=== PATIENT | female | born 1930 | race Caucasian/White ===

== ENCOUNTER 2016-10-03 08:15 | Inpatient (IN) | payer MEDICARE ==
[~2016-10-03] VITALS: Ht 162.6 cm; Wt 62.7 kg
[~2016-10-03 08:15] MED LIST: ACETAMINOP160 MG/5 M NG; ACETAMINOPHEN500 M1 PO; ADVIL200 MG PO; ALBUMIN (HUMAN100 M1 IV; AMBESOL BC; APAP325 MG NG; APAP325 MG PO; BISCOLAX10 MG/SUPP RC; CATAPRES0.1 MG PO; CELEXA20 MG PO; CHILDRENS160 MG/5 M NG; CITRATE OF MAG300 ML PO; CLEOCIN HCL300 MG PO; COLACE100 MG PO; COLACE50 MG/5 ML PO; COUGH PO; D5W 1000 ML I1000 ML IV; DEXTROSE 50%/WA50 ML IV; DIOVAN80 MG PO; GAS-X125 M1 PO; GLUCAGON1 MG/KIT IM; GLUCAGON1 MG/KIT SQ; HUMULIN R100 U/ML SC; HUMULIN R100 U/ML SQ; INSTA-GLUCOSE31 GM PO; IPRAT-ALBUT 0.5-3 ML UPD; KLONOPIN0.5 MG PO; LIPITOR20 MG PO; MELATONIN 3 MG1 TAB PO; METOCLOPRAM5 MG/5 ML IV; METOCLOPRAMIDE HCL INJ; MICRO-K10 MEQ PO; MILK OF MAGNESI30 ML PO; MULTI-DAY VITAM1 TAB PO; MYLANTA / MAALO30 ML PO; NORCO 5/325 TAB1 TA1 OR; NORVASC5 MG PO; ONDANSETRON4 MG/2 M3 IV; PHENERGAN25 M1 PO; PHENERGAN25 MG RC; PLAVIX75 MG PO; PRILOSEC20 MG PO; PROCALAMINE I1000 ML IV; PROTEIN LIQUID30 ML PO; PROTONIX I40 MG/VIAL IV; PROTONIX40 MG PO; REGLAN10 MG PO; REGLAN5 MG PO; REQUIP0.25 MG PO; ROBITUSSIN DM 110 ML PO; SALINE FLUSH10 ML IV; SCOT-TUSSI10 MG/5 ML PO; SENNA8.6 MG PO; TUMS500 MG PO; TYLENOL325 MG PO; TYLENOL650 MG RC; ULTRAM50 MG PO; XANAX0.5 MG PO; ZANTAC150 MG PO; ZOLOFT50 MG PO; [UNRECOGNIZED DRUG - REMARK]
[2016-10-03 09:00] LABS: BASOPHILS 0.2 % (0-2); HEMATOCRIT 38.4 % (36.0-48.0); IMMATURE GRANULOCYTES 0.7 % (0-5); LYMPHOCYTES 6.5 % (15-50); MCH 31.5 pg (26.0-34.0); MCHC 31.3 g/dL (31.0-37.0); MCV 100.8 fL (80.0-100.0); MEAN PLATELET VOLUME 10.7 fL (7.4-10.4); MONOCYTES 7.8 % (2-11); NEUTROPHILS 83.8 % (40-80); PLATELET COUNT 275 10x3/uL (130-400); RBC 3.81 10x6/uL (4.00-5.40); RDW 13.2 % (11.5-14.5); WBC 13.2 10x3/uL (4.8-10.8)
[2016-10-03 09:15] LABS: ALBUMIN 2.7 g/dL (3.4-5.0); BILIRUBIN - TOTAL 0.24 mg/dL (0.2-1.3); CALCIUM 9.7 mg/dL (8.5-10.1); CARBON DIOXIDE 34.1 mmol/L (21.0-32.0); CREATININE - SERUM 0.8 mg/dL (0.6-1.3); POTASSIUM - SERUM 4.1 mmol/L (3.5-5.1); PROTEIN - SERUM 7.4 g/dL (6.4-8.2)
[2016-10-03 09:18] LABS: TROPONIN-I 0.018 ng/mL (0.000-0.060)
[2016-10-03 11:01] LABS: APPEARANCE CLEAR (CLEAR); BILIRUBIN NEGATIVE (NEGATIVE); COLOR YELLOW (YELLOW); GLUCOSE NEGATIVE (NEGATIVE); KETONE NEGATIVE (NEGATIVE); LEUKOCYTE ESTERASE NEGATIVE (NEGATIVE); NITRITE NEGATIVE (NEGATIVE); PROTEIN 1+ mg/dL (NEGATIVE); UROBILINOGEN NORMAL (NORMAL)
[2016-10-03 11:02] LABS: BACTERIA FEW /hpf (NONE SEEN); EPITHELIAL CELLS OCC /hpf (0-5); MUCUS <1+ /lpf (NONE SEEN); RED CELLS - URINE OCC /hpf (0-5); WHITE CELLS - URINE OCC /hpf (0-5)
--- NOTE | 2016-10-03 11:26 | NUR ---
RECEIVED FROM ER, NO DISTRESS NOTED, RESPITORY IN ROOM GIVING TREATMENT, IV FELL OUT, TIP INTACT, WILL CONTINUE TO MONITOR
[2016-10-03 12:59] VITALS: BP 130/75; Ht 162.6 cm; Wt 62.7 kg
[2016-10-03] MEDS ORDERED: HYDROCODON-ACE1 EAC7 PO (13:41)
[2016-10-03 16:13] VITALS: BP 103/69
--- NOTE | 2016-10-03 19:44 | NUR ---
FLUSHED PATIENT'S IV. PATIENT REPORTS PAIN 12/31, NOTIFIED PADMINI MORILLO. BED IN LOWEST POSITION AND CALL LIGHT WITHIN REACH. ENCOURAGED THE PATIENT TO CALL IF SHE HAS FURTHER NEEDS.
--- NOTE | 2016-10-03 19:47 | NUR ---
INFORMED THE PATIENT THAT SHE CAN HAVE HER PAIN MEDICATION AGAIN AT 2100. NOTIFIED ILIA WASHINGTON.
[2016-10-03 20:00] VITALS: BP 106/63
[2016-10-04] VITALS: BP 110/64
[2016-10-04 04:00] VITALS: BP 102/62
--- NOTE | 2016-10-04 09:00 | NUR ---
ASSESSMENT PER FLOW SHEET.PT WITHOUT DISTRESS.CALL LIGHT IN REACH.NIA MAT IN PLACE AND FUNCTIONNING.FAMILY AT BEDSIDE
[2016-10-04 09:06] VITALS: BP 115/85
[2016-10-04 11:48] VITALS: BP 109/78
--- NOTE | 2016-10-04 12:10 | NUR ---
WITHOUT DISTRESS.MONITOR FOR NEEDS
--- NOTE | 2016-10-04 14:04 | NUR ---
SLEEPING WITHOUT NEEDS.CALL LIGHT IN REACH
[2016-10-04 16:14] VITALS: BP 104/69
--- NOTE | 2016-10-04 18:33 | NUR ---
REMAINS WITHOUT NEEDS,WITHOUT CHANGE.CONT PLAN OF CARE
[2016-10-04 20:00] VITALS: BP 96/66
--- NOTE | 2016-10-04 21:00 | NUR ---
AAO TIME 3 , ASSESS PER FLOWSHEET. DENIES NEEDS OR PAIN , BED LOW CL IN REACH. WILL CONT. WITH PLAN OF CARE. ALL FALL PRECAUTIONS IN PLACE.
[2016-10-05] VITALS: BP 102/59
--- NOTE | 2016-10-05 00:10 | NUR ---
RESTING QUIETLY WITH EYES CLOSED. RESP DEEP EVEN UNLABORED. BED LOW CL IN REACH.
--- NOTE | 2016-10-05 02:32 | NUR ---
CONT TO REST QUIETLY WITH EYES CLOSED, RESP WITH EASE.
[2016-10-05 04:00] VITALS: BP 102/76
[2016-10-05 06:11] LABS: BASOPHILS 0.5 % (0-2); EOSINOPHILS 2.8 % (0-7); HEMATOCRIT 37.3 % (36.0-48.0); HEMOGLOBIN 11.6 g/dL (12-16); IMMATURE GRANULOCYTES 0.9 % (0-5); LYMPHOCYTES 11.4 % (15-50); MCH 31.1 pg (26.0-34.0); MCHC 31.1 g/dL (31.0-37.0); MEAN PLATELET VOLUME 10.5 fL (7.4-10.4); MONOCYTES 11.6 % (2-11); NEUTROPHILS 72.8 % (40-80); PLATELET COUNT 289 10x3/uL (130-400); RBC 3.73 10x6/uL (4.00-5.40); RDW 13.2 % (11.5-14.5)
[2016-10-05 06:13] LABS: WBC 8.6 10x3/uL (4.8-10.8)
[2016-10-05 06:29] LABS: CALCIUM 9.3 mg/dL (8.5-10.1); CARBON DIOXIDE 32.7 mmol/L (21.0-32.0); CREATININE - SERUM 0.8 mg/dL (0.6-1.3); POTASSIUM - SERUM 3.7 mmol/L (3.5-5.1)
--- NOTE | 2016-10-05 07:20 | NUR ---
REPORT RECEIVED FROM DIESEL LOCOMOTIVE ENGINEER NURSE. CALL LIGHT IN REACH.
[2016-10-05 08:08] VITALS: BP 96/61
--- NOTE | 2016-10-05 08:20 | NUR ---
PATIENT ALERT IN MID GUILLORY POSITION READING NEWSPAPER. NO SIGNS OF DISTRESS NOTED. FAMILY AT BEDSIDE. SIDE RAILS UP X2. BED IN LOW POSITION. CALL LIGHT IN REACH.
--- NOTE | 2016-10-05 09:28 | NUR ---
ASSESSMENT COMPLETED. SCDs TO BLE. NORCO PO WITH AM MEDS ADMINISTERED. NIA MAT ALARM ON. VISITOR IN ROOM. CALL LIGHT IN REACH. WILL CONTINUE WITH PLAN OF CARE.
[2016-10-05] MEDS ORDERED: ZITHROMAX250 MG PO (11:20)
[2016-10-05] MEDS ORDERED: OMNICEF300 MG PO (11:20)
--- NOTE | 2016-10-05 11:43 | NUR ---
10/05/2016 11:36 DCP: Discharge Planning Patient Name: SAMEERA JOAQUIN Admission Status: ER Accout number: [id number] Admission Date: 10-03-2016 : 1930 Admission Diagnosis: Attending: MARYELLEN Current LOS: 2 Planned Disposition: [facility] Primary Insurance: MEDICARE A & B Discharge Planning Comments: DC order rec'd. Patient is a longterm care resident at [facility] & will return this afternoon to a assistant terminal manager care bed. Transport van will pick her up this afternoon. Nursing to call report to [phone] to Estela. Application Support Technician: Kay Nieves
[2016-10-05 12:11] VITALS: BP 94/62
--- NOTE | 2016-10-05 12:24 | NUR ---
IV DC'D WITH TIP INTACT. REGLAN PO. DC INSTRUCTIONS EXPLAINED TO PATIENT. VERBALIZED AND SIGNED.
--- NOTE | 2016-10-05 12:34 | NUR ---
REPORT CALLED TO ILIA MCDONALD, AT [facility].
--- NOTE | 2016-10-05 13:20 | NUR ---
DC'D TO [facility] VAN VIA WC WITH [facility] STAFF.
== END 2016-10-05 13:20 | DRG 179 ==
LOC: D.ER 08:15 → D.MS 10:13
PROVIDERS: Emergency Medicine; ADMIT Emergency Medicine
DX: J69.0 Pneumonitis due to inhalation of food and vomit (principal); I10 Essential (primary) hypertension; G25.81 Restless legs syndrome; R09.02 Hypoxemia; K59.09 Other constipation

== ENCOUNTER 2018-01-01 13:15 | Inpatient (IN) | payer MEDICARE ==
[2018-01-01] VITALS (8 sets, daily range): BP systolic 101–114; BP diastolic 60–81
[~2018-01-01] VITALS: Ht 162.6 cm; Wt 54.4 kg
--- NOTE | ~2018-01-01 | PN ---
PATIENT:SAMEERA JOAQUIN MEDICAL RECORD: [id number] LOCATION:[facility] ADMISSION DATE: 01/01/18 PROGRESS NOTE DATE OF SERVICE: 01/10/2018 SUBJECTIVE: This is an 87-year-old female who was admitted for cough, sputum production and shortness of breath and has been treated with antibiotics. Urine showed gram-positive cocci. She has had persistent left basilar airspace disease and pleural effusion without significant interval change. The patient has been feeling well. Denies any shortness of breath or coughing. The patient states that she is doing well and wants to go home. She is mildly confused. PHYSICAL EXAMINATION: GENERAL: Physical exam reveals a woman who is in no acute distress. VITAL SIGNS: Temperature 98.2, heart rate of 89, respiratory rate 24, blood pressure 148/54, saturation 95%. SHEENT: Unremarkable. NECK: Supple. No adenopathy. Trachea is midline. LUNGS: Clear and symmetric. Crackles on coughing. No chest wall tenderness or accessory muscle use. HEART: Exam shows no jugular venous distention, murmur or gallops. ABDOMEN: Benign, without tenderness. EXTREMITIES: No clubbing, cyanosis or edema. LABORATORY DATA: White count 7.7, hemoglobin 7.7, and platelet count is 199. Chemistry is remarkable for creatinine of 0.6. Sodium is 144, potassium 3.5 supplemented. ASSESSMENT: 1. Urinary tract infection secondary to vancomycin-resistant Enterococcus faecium. 2. Pneumonitis, possibly chronic. PLAN: 1. Continue antibiotics. 2. Deep venous thrombosis prophylaxis with Lovenox. 3. Bronchodilators. TRANSINT:[id number] Voice Confirmation ID: [id number] DOCUMENT ID: [id number] TEO CARRION at 1536 CC: [id number] DICTATION DATE: 01/10/182110 RESIDENTIAL TREATMENT STAFF: 01/11/18 0136 ADM IN [place] [id number] [place] [address]
--- NOTE | ~2018-01-01 | PN ---
PATIENT:SAMEERA JOAQUIN MEDICAL RECORD: [id number] LOCATION:D[facility] ADMISSION DATE: 01/01/18 PROGRESS NOTE DATE OF SERVICE: 01/12/2018 SUBJECTIVE: This is an 87-year-old female who was admitted for urinary tract infection. The patient was noted to have basilar airspace disease as well as pleural effusion. She also has some nodular opacities right lower lobe and left upper lobe. This represent previously noted pulmonary nodules. There was diffuse interstitial prominence seen throughout both lungs. The patient has been on antibiotics, has also been on bronchodilators. The patient has been feeling well and wants to go home. There is no fever or chills. PHYSICAL EXAMINATION: GENERAL: Reveals an elderly female who is confused. VITAL SIGNS: Temperature 98.6, heart rate of 94, respiratory rate of 16, blood pressure 154/79 and saturation 96%. HEENT: Showed normocephalic. Pupils are equal and reactive. Nasal cavity is normal with no obstruction. Oral cavity is also normal, well moistened. NECK: Supple. There is no adenopathy. Trachea is midline. CHEST: Showed some mild crackles and coughing. HEART: Shows no jugular venous distention. No murmur or gallops. ABDOMEN: Benign with no tenderness. There are no masses. EXTREMITIES: There is no clubbing, cyanosis or edema. LABORATORY DATA: Initial white count 7.3, hemoglobin 11.9, platelet count is 222,000. Chemistry is remarkable for creatinine of 0.7. Sodium is 141. ASSESSMENT: 1. Basilar pneumonia, improving clinically. 2. Interstitial lung disease, chronic. 3. Pulmonary nodules, stable. 4. Urinary tract infection. 5. Pleural effusion, improved on antibiotics. 6. Spiculated nodules in the bilateral upper lobes, possible pneumonia, but diagnosis will be deferred at this time. PLAN: 1. Continue antibiotics. 2. Bronchodilators. 3. Followup chest x-ray. 4. The patient may be discharged until Wednesday over the weekend. TRANSINT:[id number] Voice Confirmation ID: [id number] DOCUMENT ID: [id number] PROGRESS NOTE [id number] SAMEERA JOAQUIN TEO CARRION at 1249 CC: [id number] DICTATION DATE: 01/12/18 4011 FIRE REGULATOR: 01/12/182206 DIS IN 01/13/18 [facility] [address] [place] [address]
--- NOTE | ~2018-01-01 | PN ---
PATIENT:SAMEERA JOAQUIN MEDICAL RECORD: [id number] LOCATION:D[facility] ADMISSION DATE: 01/01/18 PROGRESS NOTE DATE OF SERVICE: 01/11/2018 SUBJECTIVE: This is an 87-year-old female who was admitted for urinary tract infection. The patient was noted to have some coughing and some shortness of breath. She has had COPD and has a nebulizer, but does not use nebulizer and occasionally uses her rescue inhaler. The patient has been coughing up thick sputum. The patient was noted to have multifocal pneumonia. She has been treated with antibiotics. The patient's urine have grown VRE Enterococcus faecium. She also grew out E. coli. Blood cultures are negative. The patient has dementia and has been trying to go home. There is no fever or chills. PHYSICAL EXAMINATION: VITAL SIGNS: Temperature 98.4, heart rate 96, respiratory rate of 18, blood pressure 148/84, saturation 94%. SHEENT: Unremarkable. NECK: Supple. There is no adenopathy. Trachea is midline. CHEST: Shows some mild crackles, which is decreased from yesterday. HEART: Shows no jugular venous distention. No murmur or gallops. ABDOMEN: Benign. There is no tenderness. There is no distention. EXTREMITIES: No clubbing, cyanosis or edema. LABORATORY DATA: White count is 11.8, hemoglobin 11.7. Platelet count is 208. Chemistry is remarkable for potassium of 3.2, bicarbonate is 31. KUB showed nonspecific bowel gas pattern. Chest x-ray showed left pleural effusion with left basilar airspace disease, which may be infiltrate or atelectasis. There is nodular opacities seen in the right lower lobe and left upper lobe consistent with previous pulmonary nodules. There is also diffuse interstitial prominence in both lungs. ASSESSMENT: 1. Left lower lobe pneumonia, atelectasis. The patient is on antibiotics which should cover pneumonia. Interstitial lung disease which is probably chronic. There are pulmonary nodules, also chronic, most likely old granulomatous disease. 2. Urinary tract infection with vancomycin-resistant Enterococcus. 3. Dementia. PLAN: 1. Continue antibiotics. 2. Bronchodilators. 3. DVT prophylaxis. TRANSINT:[id number] Voice Confirmation ID: [id number] DOCUMENT ID: [id number] PROGRESS NOTE [id number] SAMEERA JOAQUIN TEO CARRION at 1850 CC: [id number] DICTATION DATE: 01/11/182039 CYBER SECURITY ANALYST: 01/12/18 0558 ADM IN [facility] [address] [place] [address]
[~2018-01-01 13:15] MED LIST changes: +HYDROCODON-ACE1 EAC7 PO; +OMNICEF300 MG PO; +ZITHROMAX250 MG PO
[2018-01-01 14:17] LABS: BASOPHILS 0.2 % (0-2); EOSINOPHILS 0.9 % (0-7); HEMATOCRIT 40.1 % (36.0-48.0); HEMOGLOBIN 12.8 g/dL (12-16); IMMATURE GRANULOCYTES 0.5 % (0-5); MCH 31.8 pg (26.0-34.0); MCHC 31.9 g/dL (31.0-37.0); MCV 99.8 fL (80.0-100.0); MEAN PLATELET VOLUME 11.2 fL (7.4-10.4); MONOCYTES 7.8 % (2-11); NEUTROPHILS 81.6 % (40-80); PLATELET COUNT 235 10x3/uL (130-400); RBC 4.02 10x6/uL (4.00-5.40); RDW 12.7 % (11.5-14.5)
[2018-01-01 14:28] LABS: INR 0.99 (0.85-1.17); PROTIME 12.7 SECONDS (11.6-15.0)
[2018-01-01 14:29] LABS: D-DIMER-QUANTITATIVE 1.29 ug/mLFEU (0.20-0.54)
[2018-01-01 14:44] LABS: ALBUMIN 2.6 g/dL (3.4-5.0); ALKALINE PHOSPHATASE 106 U/L (46-116); ALT (SGPT) 22 U/L (10-68); BILIRUBIN - TOTAL 0.19 mg/dL (0.2-1.3); CALC OSMOLALITY 282 mosm/kg (275-300); CALCIUM 9.6 mg/dL (8.5-10.1); CARBON DIOXIDE 32.6 mmol/L (21.0-32.0); CHLORIDE - SERUM 104 mmol/L (98-107); CREATININE - SERUM 0.7 mg/dL (0.6-1.3); GLUCOSE 105 mg/dL (74-106); POTASSIUM - SERUM 4.1 mmol/L (3.5-5.1); PROTEIN - SERUM 7.3 g/dL (6.4-8.2); SODIUM 141 mmol/L (136-145); UREA NITROGEN 17 mg/dL (7-18); eGFR NON AFRICAN AMERICAN 84 mL/min (90-120)
[2018-01-01 14:53] LABS: APPEARANCE HAZY (CLEAR); COLOR YELLOW (YELLOW); SPECIFIC GRAVITY 1.015 (1.005-1.020)
[2018-01-01 14:54] LABS: CKMB 1.6 U/L (0.0-3.6); CREATINE KINASE 23 UL (21-215); LIPASE 74 U/L (73-393); PRO BNP 2160 pg/mL (0-450); THYROID STIMULATING HORMONE 0.46 uIU/mL (0.36-3.74); TROPONIN-I 0.019 ng/mL (0.000-0.060)
[2018-01-01 14:54] LABS: BILIRUBIN NEGATIVE (NEGATIVE); GLUCOSE NEGATIVE (NEGATIVE); KETONE NEGATIVE (NEGATIVE); NITRITE POSITIVE (NEGATIVE); PROTEIN TRACE mg/dL (NEGATIVE); UROBILINOGEN NORMAL (NORMAL)
[2018-01-01 14:55] LABS: BACTERIA MANY /hpf (NONE SEEN); RED CELLS - URINE 0-5 /hpf (0-5)
[2018-01-02 03:49] VITALS: BP 103/62; BMI 20.6
[2018-01-02 04:00] VITALS: BP 174/71
[2018-01-02 07:53] LABS: HEMATOCRIT 41.2 % (36.0-48.0); HEMOGLOBIN 13.4 g/dL (12-16); LYMPHOCYTES 7.6 % (15-50); MCH 31.5 pg (26.0-34.0); MCHC 32.5 g/dL (31.0-37.0); MCV 96.9 fL (80.0-100.0); MEAN PLATELET VOLUME 11.8 fL (7.4-10.4); NEUTROPHILS 80.7 % (40-80); PLATELET COUNT 191 10x3/uL (130-400); RBC 4.25 10x6/uL (4.00-5.40); RDW 12.4 % (11.5-14.5); WBC 10.4 10x3/uL (4.8-10.8)
[2018-01-02 08:04] LABS: CALC OSMOLALITY 275 mosm/kg (275-300); CALCIUM 9.2 mg/dL (8.5-10.1); CHLORIDE - SERUM 102 mmol/L (98-107); CREATININE - SERUM 0.6 mg/dL (0.6-1.3); GLUCOSE 86 mg/dL (74-106); POTASSIUM - SERUM 3.9 mmol/L (3.5-5.1); SODIUM 139 mmol/L (136-145); eGFR NON AFRICAN AMERICAN > 90 mL/min (90-120)
[2018-01-02 08:05] LABS: UREA NITROGEN 10 mg/dL (7-18)
[2018-01-02 08:15] VITALS: BP 150/67
[2018-01-02 16:00] VITALS: BP 96/66
[2018-01-02 16:15] VITALS: BP 112/61
[2018-01-02 20:00] VITALS: BP 126/72
[2018-01-03 05:40] VITALS: BP 157/70
[2018-01-03 07:04] LABS: BASOPHILS 0.3 % (0-2); EOSINOPHILS 1.7 % (0-7); HEMATOCRIT 40.1 % (36.0-48.0); HEMOGLOBIN 12.9 g/dL (12-16); IMMATURE GRANULOCYTES 0.6 % (0-5); LYMPHOCYTES 6.3 % (15-50); MCH 31.3 pg (26.0-34.0); MCHC 32.2 g/dL (31.0-37.0); MCV 97.3 fL (80.0-100.0); MEAN PLATELET VOLUME 11.2 fL (7.4-10.4); MONOCYTES 9.5 % (2-11); NEUTROPHILS 81.6 % (40-80); RBC 4.12 10x6/uL (4.00-5.40); RDW 12.8 % (11.5-14.5); WBC 10.7 10x3/uL (4.8-10.8)
[2018-01-03 07:12] LABS: PLATELET COUNT 243 10x3/uL (130-400)
[2018-01-03 07:36] LABS: ALBUMIN 2.4 g/dL (3.4-5.0); ALKALINE PHOSPHATASE 102 U/L (46-116); ALT (SGPT) 16 U/L (10-68); BILIRUBIN - TOTAL 0.27 mg/dL (0.2-1.3); CALC OSMOLALITY 276 mosm/kg (275-300); CALCIUM 9.1 mg/dL (8.5-10.1); CARBON DIOXIDE 34.8 mmol/L (21.0-32.0); CHLORIDE - SERUM 102 mmol/L (98-107); CREATININE - SERUM 0.7 mg/dL (0.6-1.3); GLUCOSE 96 mg/dL (74-106); POTASSIUM - SERUM 3.2 mmol/L (3.5-5.1); PROTEIN - SERUM 6.9 g/dL (6.4-8.2); SODIUM 140 mmol/L (136-145); UREA NITROGEN 8 mg/dL (7-18); eGFR NON AFRICAN AMERICAN 84 mL/min (90-120)
[2018-01-03 08:20] VITALS: BP 169/65
[2018-01-03 13:16] VITALS: BP 128/57
[2018-01-03 15:21] VITALS: Ht 162.6 cm; Wt 54.4 kg
[2018-01-03 17:05] VITALS: BP 158/49
[2018-01-03 20:35] VITALS: BP 96/61
[2018-01-04 01:28] VITALS: BP 94/64
[2018-01-04 04:19] VITALS: BP 96/54
[2018-01-04 08:20] VITALS: BP 133/61
[2018-01-04 08:40] LABS: BASOPHILS 0.2 % (0-2); EOSINOPHILS 2.4 % (0-7); HEMATOCRIT 40.1 % (36.0-48.0); IMMATURE GRANULOCYTES 0.9 % (0-5); LYMPHOCYTES 5.9 % (15-50); MCH 31.4 pg (26.0-34.0); MCHC 32.4 g/dL (31.0-37.0); MCV 96.9 fL (80.0-100.0); MEAN PLATELET VOLUME 10.5 fL (7.4-10.4); MONOCYTES 11.6 % (2-11); PLATELET COUNT 229 10x3/uL (130-400); RBC 4.14 10x6/uL (4.00-5.40); RDW 12.8 % (11.5-14.5)
[2018-01-04 09:20] LABS: ALBUMIN 2.4 g/dL (3.4-5.0); ALKALINE PHOSPHATASE 100 U/L (46-116); ALT (SGPT) 17 U/L (10-68); BILIRUBIN - TOTAL 0.31 mg/dL (0.2-1.3); CALCIUM 8.9 mg/dL (8.5-10.1); CARBON DIOXIDE 35.2 mmol/L (21.0-32.0); CHLORIDE - SERUM 102 mmol/L (98-107); CREATININE - SERUM 0.7 mg/dL (0.6-1.3); GLUCOSE 98 mg/dL (74-106); PROTEIN - SERUM 6.9 g/dL (6.4-8.2); SODIUM 143 mmol/L (136-145); eGFR NON AFRICAN AMERICAN 84 mL/min (90-120)
[2018-01-04 09:24] LABS: CALC OSMOLALITY 281 mosm/kg (275-300); UREA NITROGEN 5 mg/dL (7-18)
[2018-01-04 09:28] LABS: POTASSIUM - SERUM 2.9 mmol/L (3.5-5.1)
[2018-01-04 12:16] VITALS: BP 143/64
[2018-01-04 16:33] VITALS: BP 138/61
[2018-01-04 21:22] VITALS: BP 172/62
[2018-01-05 04:16] VITALS: BP 164/64
[2018-01-05 06:12] LABS: BASOPHILS 0.2 % (0-2); EOSINOPHILS 3.1 % (0-7); HEMATOCRIT 39.4 % (36.0-48.0); HEMOGLOBIN 12.7 g/dL (12-16); IMMATURE GRANULOCYTES 0.8 % (0-5); LYMPHOCYTES 6.9 % (15-50); MCH 31.2 pg (26.0-34.0); MCHC 32.2 g/dL (31.0-37.0); MCV 96.8 fL (80.0-100.0); MONOCYTES 11.3 % (2-11); NEUTROPHILS 77.7 % (40-80); PLATELET COUNT 236 10x3/uL (130-400); RBC 4.07 10x6/uL (4.00-5.40); RDW 12.9 % (11.5-14.5); WBC 8.3 10x3/uL (4.8-10.8)
[2018-01-05 06:14] LABS: APTT 32.6 SECONDS (22.8-39.4)
[2018-01-05 06:15] LABS: INR 1.08 (0.85-1.17); PROTIME 13.6 SECONDS (11.6-15.0)
[2018-01-05 07:23] LABS: ALBUMIN 2.4 g/dL (3.4-5.0); ALKALINE PHOSPHATASE 96 U/L (46-116); ALT (SGPT) 18 U/L (10-68); BILIRUBIN - TOTAL 0.29 mg/dL (0.2-1.3); CALC OSMOLALITY 282 mosm/kg (275-300); CALCIUM 8.6 mg/dL (8.5-10.1); CARBON DIOXIDE 32.2 mmol/L (21.0-32.0); CHLORIDE - SERUM 104 mmol/L (98-107); CREATININE - SERUM 0.7 mg/dL (0.6-1.3); GLUCOSE 92 mg/dL (74-106); LDH 197 U/L (81-234); PROTEIN - SERUM 6.5 g/dL (6.4-8.2); SODIUM 143 mmol/L (136-145); UREA NITROGEN 6 mg/dL (7-18); eGFR NON AFRICAN AMERICAN 84 mL/min (90-120)
[2018-01-05 07:28] LABS: POTASSIUM - SERUM 2.9 mmol/L (3.5-5.1)
[2018-01-05 09:42] VITALS: BP 148/66
[2018-01-05 13:13] LABS: PROTEIN - BODY FLUID 2.7 G/DL
[2018-01-05 14:19] LABS: MACROPHAGES BF 9 %; MESOTHELIALS BF 1 %; NEUT - BF 11 %
[2018-01-05 17:29] VITALS: BP 133/64
[2018-01-05 20:35] VITALS: BP 108/66
[2018-01-06 04:42] VITALS: BP 124/64
[2018-01-06 04:51] LABS: BASOPHILS 0.2 % (0-2); EOSINOPHILS 4.3 % (0-7); HEMATOCRIT 38.9 % (36.0-48.0); HEMOGLOBIN 12.4 g/dL (12-16); IMMATURE GRANULOCYTES 0.8 % (0-5); LYMPHOCYTES 10.8 % (15-50); MCHC 31.9 g/dL (31.0-37.0); MCV 97.3 fL (80.0-100.0); MEAN PLATELET VOLUME 10.9 fL (7.4-10.4); MONOCYTES 7.1 % (2-11); NEUTROPHILS 76.8 % (40-80); PLATELET COUNT 223 10x3/uL (130-400); RDW 12.9 % (11.5-14.5); WBC 9.3 10x3/uL (4.8-10.8)
[2018-01-06 05:22] LABS: ALBUMIN 2.3 g/dL (3.4-5.0); ALKALINE PHOSPHATASE 85 U/L (46-116); ALT (SGPT) 15 U/L (10-68); BILIRUBIN - TOTAL 0.25 mg/dL (0.2-1.3); CALCIUM 8.5 mg/dL (8.5-10.1); CHLORIDE - SERUM 107 mmol/L (98-107); CREATININE - SERUM 0.7 mg/dL (0.6-1.3); GLUCOSE 87 mg/dL (74-106); POTASSIUM - SERUM 3.5 mmol/L (3.5-5.1); PROTEIN - SERUM 6.2 g/dL (6.4-8.2); SODIUM 143 mmol/L (136-145); eGFR NON AFRICAN AMERICAN 84 mL/min (90-120)
[2018-01-06 05:35] LABS: CALC OSMOLALITY 281 mosm/kg (275-300); UREA NITROGEN 8 mg/dL (7-18)
[2018-01-06 08:28] VITALS: BP 160/64
[2018-01-06 13:35] VITALS: BP 114/47
[2018-01-06 16:42] VITALS: BP 152/73
[2018-01-06 19:12] LABS: ACID FAST SMEAR Negative (()); AFB SPECIMEN PROCESSING Not Indicated (())
[2018-01-06 20:36] VITALS: BP 130/88
[2018-01-07 01:08] VITALS: BP 150/90
[2018-01-07 05:20] LABS: BASOPHILS 0.6 % (0-2); EOSINOPHILS 3.7 % (0-7); HEMATOCRIT 40.5 % (36.0-48.0); HEMOGLOBIN 13.1 g/dL (12-16); IMMATURE GRANULOCYTES 0.5 % (0-5); LYMPHOCYTES 8.9 % (15-50); MCH 31.5 pg (26.0-34.0); MCHC 32.3 g/dL (31.0-37.0); MCV 97.4 fL (80.0-100.0); MONOCYTES 10.3 % (2-11); PLATELET COUNT 193 10x3/uL (130-400); RBC 4.16 10x6/uL (4.00-5.40); RDW 12.8 % (11.5-14.5); WBC 10.2 10x3/uL (4.8-10.8)
[2018-01-07 05:28] LABS: ALBUMIN 2.6 g/dL (3.4-5.0); ALKALINE PHOSPHATASE 98 U/L (46-116); ALT (SGPT) 15 U/L (10-68); BILIRUBIN - TOTAL 0.27 mg/dL (0.2-1.3); CALC OSMOLALITY 281 mosm/kg (275-300); CALCIUM 8.4 mg/dL (8.5-10.1); CARBON DIOXIDE 30.6 mmol/L (21.0-32.0); CHLORIDE - SERUM 106 mmol/L (98-107); CREATININE - SERUM 0.7 mg/dL (0.6-1.3); GLUCOSE 90 mg/dL (74-106); PROTEIN - SERUM 6.3 g/dL (6.4-8.2); SODIUM 142 mmol/L (136-145); UREA NITROGEN 10 mg/dL (7-18); eGFR NON AFRICAN AMERICAN 84 mL/min (90-120)
[2018-01-07 05:31] LABS: POTASSIUM - SERUM 2.9 mmol/L (3.5-5.1)
[2018-01-07 08:46] VITALS: BP 130/72
[2018-01-07 11:21] LABS: FUNGUS STAIN Final report (())
[2018-01-07 11:53] VITALS: BP 104/66
[2018-01-07 20:18] VITALS: BP 142/94
[2018-01-08 04:16] VITALS: BP 159/90
[2018-01-08 08:16] LABS: BASOPHILS 0.2 % (0-2); EOSINOPHILS 3.6 % (0-7); HEMATOCRIT 40.5 % (36.0-48.0); IMMATURE GRANULOCYTES 0.6 % (0-5); LYMPHOCYTES 8.7 % (15-50); MCH 31.3 pg (26.0-34.0); MCHC 32.1 g/dL (31.0-37.0); MCV 97.6 fL (80.0-100.0); MEAN PLATELET VOLUME 10.9 fL (7.4-10.4); MONOCYTES 10.7 % (2-11); NEUTROPHILS 76.2 % (40-80); PLATELET COUNT 176 10x3/uL (130-400); RBC 4.15 10x6/uL (4.00-5.40); RDW 13.1 % (11.5-14.5); WBC 8.5 10x3/uL (4.8-10.8)
[2018-01-08 08:30] LABS: CALC OSMOLALITY 273 mosm/kg (275-300); CALCIUM 8.7 mg/dL (8.5-10.1); CARBON DIOXIDE 30.3 mmol/L (21.0-32.0); CHLORIDE - SERUM 105 mmol/L (98-107); CREATININE - SERUM 0.6 mg/dL (0.6-1.3); GLUCOSE 87 mg/dL (74-106); SODIUM 138 mmol/L (136-145); UREA NITROGEN 10 mg/dL (7-18); eGFR NON AFRICAN AMERICAN > 90 mL/min (90-120)
[2018-01-08 08:43] LABS: POTASSIUM - SERUM 3.5 mmol/L (3.5-5.1)
[2018-01-08 10:32] VITALS: BP 129/67
[2018-01-08 14:33] VITALS: BP 107/74
[2018-01-08 17:08] LABS: FUNGAL - ASP FLAVUS Negative (Neg:<1:1); FUNGAL - ASP NIGER Negative (Neg:<1:1); FUNGAL - ASPER FUMIGATUS Negative (Neg:<1:1)
[2018-01-08 19:16] VITALS: BP 97/56
[2018-01-08 20:16] VITALS: BP 110/74
[2018-01-09 01:11] VITALS: BP 124/74
[2018-01-09 04:30] VITALS: BP 134/84
[2018-01-09 06:39] LABS: BASOPHILS 0.2 % (0-2); EOSINOPHILS 3.5 % (0-7); HEMATOCRIT 37.9 % (36.0-48.0); HEMOGLOBIN 12.3 g/dL (12-16); IMMATURE GRANULOCYTES 0.4 % (0-5); LYMPHOCYTES 8.5 % (15-50); MCH 31.2 pg (26.0-34.0); MCHC 32.5 g/dL (31.0-37.0); MCV 96.2 fL (80.0-100.0); MEAN PLATELET VOLUME 11.1 fL (7.4-10.4); MONOCYTES 9.4 % (2-11); PLATELET COUNT 200 10x3/uL (130-400); RBC 3.94 10x6/uL (4.00-5.40)
[2018-01-09 07:34] LABS: CALC OSMOLALITY 281 mosm/kg (275-300); CALCIUM 8.2 mg/dL (8.5-10.1); CARBON DIOXIDE 32.5 mmol/L (21.0-32.0); CHLORIDE - SERUM 104 mmol/L (98-107); CREATININE - SERUM 0.6 mg/dL (0.6-1.3); GLUCOSE 97 mg/dL (74-106); SODIUM 142 mmol/L (136-145); UREA NITROGEN 11 mg/dL (7-18); eGFR NON AFRICAN AMERICAN > 90 mL/min (90-120)
[2018-01-09 09:37] VITALS: BP 143/57
[2018-01-09 14:35] VITALS: BP 123/57
[2018-01-09 16:50] VITALS: BP 138/65
[2018-01-09 20:35] VITALS: BP 155/72
[2018-01-10 01:31] VITALS: BP 148/74
[2018-01-10 04:18] VITALS: BP 134/58
[2018-01-10 05:06] LABS: BASOPHILS 0.4 % (0-2); EOSINOPHILS 4.5 % (0-7); HEMATOCRIT 36.7 % (36.0-48.0); HEMOGLOBIN 11.7 g/dL (12-16); IMMATURE GRANULOCYTES 0.1 % (0-5); MCHC 31.9 g/dL (31.0-37.0); MCV 97.3 fL (80.0-100.0); MEAN PLATELET VOLUME 11.1 fL (7.4-10.4); MONOCYTES 11.8 % (2-11); NEUTROPHILS 70.2 % (40-80); PLATELET COUNT 199 10x3/uL (130-400); RBC 3.77 10x6/uL (4.00-5.40); WBC 7.7 10x3/uL (4.8-10.8)
[2018-01-10 05:22] LABS: CALC OSMOLALITY 287 mosm/kg (275-300); CALCIUM 8.7 mg/dL (8.5-10.1); CARBON DIOXIDE 32.8 mmol/L (21.0-32.0); CHLORIDE - SERUM 107 mmol/L (98-107); CREATININE - SERUM 0.6 mg/dL (0.6-1.3); GLUCOSE 90 mg/dL (74-106); POTASSIUM - SERUM 3.5 mmol/L (3.5-5.1); SODIUM 144 mmol/L (136-145); UREA NITROGEN 14 mg/dL (7-18); eGFR NON AFRICAN AMERICAN > 90 mL/min (90-120)
[2018-01-10 08:43] VITALS: BP 128/60
[2018-01-10 13:04] VITALS: BP 140/70
[2018-01-10 16:24] VITALS: BP 140/54
[2018-01-10 21:16] VITALS: BP 156/96
[2018-01-11 04:27] VITALS: BP 148/84
[2018-01-11 06:26] LABS: BASOPHILS 0.1 % (0-2); EOSINOPHILS 2.5 % (0-7); HEMATOCRIT 36.7 % (36.0-48.0); HEMOGLOBIN 11.7 g/dL (12-16); IMMATURE GRANULOCYTES 0.3 % (0-5); LYMPHOCYTES 9.6 % (15-50); MCHC 31.9 g/dL (31.0-37.0); MCV 97.1 fL (80.0-100.0); MEAN PLATELET VOLUME 11.4 fL (7.4-10.4); MONOCYTES 9.3 % (2-11); NEUTROPHILS 78.2 % (40-80); PLATELET COUNT 208 10x3/uL (130-400); RBC 3.78 10x6/uL (4.00-5.40); RDW 13.1 % (11.5-14.5)
[2018-01-11 06:42] LABS: CALC OSMOLALITY 277 mosm/kg (275-300); CALCIUM 8.4 mg/dL (8.5-10.1); CARBON DIOXIDE 30.9 mmol/L (21.0-32.0); CHLORIDE - SERUM 105 mmol/L (98-107); CREATININE - SERUM 0.7 mg/dL (0.6-1.3); GLUCOSE 86 mg/dL (74-106); POTASSIUM - SERUM 3.2 mmol/L (3.5-5.1); SODIUM 140 mmol/L (136-145); UREA NITROGEN 13 mg/dL (7-18); eGFR NON AFRICAN AMERICAN 84 mL/min (90-120)
[2018-01-11 21:06] VITALS: BP 105/71
[2018-01-12 04:56] VITALS: BP 124/74
[2018-01-12 06:41] LABS: BASOPHILS 0.4 % (0-2); EOSINOPHILS 5.1 % (0-7); HEMATOCRIT 37.9 % (36.0-48.0); HEMOGLOBIN 11.9 g/dL (12-16); IMMATURE GRANULOCYTES 0.3 % (0-5); LYMPHOCYTES 17.3 % (15-50); MCH 30.9 pg (26.0-34.0); MCHC 31.4 g/dL (31.0-37.0); MCV 98.4 fL (80.0-100.0); MEAN PLATELET VOLUME 11.3 fL (7.4-10.4); MONOCYTES 9.5 % (2-11); NEUTROPHILS 67.4 % (40-80); PLATELET COUNT 222 10x3/uL (130-400); RBC 3.85 10x6/uL (4.00-5.40); RDW 13.1 % (11.5-14.5)
[2018-01-12 06:52] LABS: WBC 7.3 10x3/uL (4.8-10.8)
[2018-01-12 07:41] LABS: CALC OSMOLALITY 281 mosm/kg (275-300); CALCIUM 8.8 mg/dL (8.5-10.1); CARBON DIOXIDE 29.2 mmol/L (21.0-32.0); CHLORIDE - SERUM 105 mmol/L (98-107); CREATININE - SERUM 0.7 mg/dL (0.6-1.3); GLUCOSE 90 mg/dL (74-106); SODIUM 141 mmol/L (136-145); UREA NITROGEN 14 mg/dL (7-18); eGFR NON AFRICAN AMERICAN 84 mL/min (90-120)
[2018-01-12 07:45] LABS: POTASSIUM - SERUM 3.8 mmol/L (3.5-5.1)
[2018-01-12 09:00] VITALS: BP 161/92
[2018-01-12 11:45] VITALS: BP 121/67
[2018-01-12 15:46] VITALS: BP 154/78
[2018-01-12 20:00] VITALS: BP 132/62
[2018-01-13] VITALS: BP 126/60
[2018-01-13 04:00] VITALS: BP 130/71
[2018-01-13 06:55] LABS: BASOPHILS 0.2 % (0-2); EOSINOPHILS 4.6 % (0-7); HEMATOCRIT 35.9 % (36.0-48.0); HEMOGLOBIN 11.3 g/dL (12-16); IMMATURE GRANULOCYTES 0.2 % (0-5); LYMPHOCYTES 11.3 % (15-50); MCH 31.1 pg (26.0-34.0); MCHC 31.5 g/dL (31.0-37.0); MCV 98.9 fL (80.0-100.0); MEAN PLATELET VOLUME 11.3 fL (7.4-10.4); MONOCYTES 8.9 % (2-11); NEUTROPHILS 74.8 % (40-80); PLATELET COUNT 208 10x3/uL (130-400); RBC 3.63 10x6/uL (4.00-5.40); RDW 12.9 % (11.5-14.5)
[2018-01-13] MEDS ORDERED: ZYVOX600 MG PO (08:43)
[2018-01-13 09:08] VITALS: BP 132/64
[2018-02-02 11:20] LABS: FUNGUS MYCOLOGY CULTURE Final report (())
== END 2018-01-13 11:16 | DRG 177 ==
LOC: D.ER 13:15 → D.MS 19:55 → D.EDHOLD 19:55 → D.MS 22:19
PROVIDERS: Family Medicine; Family Medicine Adult Medicine; Internal Medicine; Internal Medicine Nephrology; Internal Medicine Pulmonary Disease; Radiology Vascular & Interventional Radiology
PROC: 0W9B3ZZ Drainage of Left Pleural Cavity, Percutaneous Approach (ICD-10-PCS; principal; 2018-01-05 11:46)
DX: J69.0 Pneumonitis due to inhalation of food and vomit (principal); J96.01 Acute respiratory failure with hypoxia; N39.0 Urinary tract infection, site not specified; N17.9 Acute kidney failure, unspecified; J90 Pleural effusion, not elsewhere classified; E46 Unspecified protein-calorie malnutrition; C34.90 Malignant neoplasm of unspecified part of unspecified bronchus or lung; I12.9 Hypertensive chronic kidney disease with stage 1 through stage 4 chronic kidney disease, or unspecified chronic kidney disease; N18.9 Chronic kidney disease, unspecified; I25.10 Atherosclerotic heart disease of native coronary artery without angina pectoris; G25.81 Restless legs syndrome; K21.9 Gastro-esophageal reflux disease without esophagitis; K59.09 Other constipation; F32.9 Major depressive disorder, single episode, unspecified; F03.90 Unspecified dementia, unspecified severity, without behavioral disturbance, psychotic disturbance, mood disturbance, and anxiety; G47.00 Insomnia, unspecified; K52.9 Noninfective gastroenteritis and colitis, unspecified; E87.6 Hypokalemia; R91.8 Other nonspecific abnormal finding of lung field; B96.20 Unspecified Escherichia coli [E. coli] as the cause of diseases classified elsewhere; E83.42 Hypomagnesemia; E88.09 Other disorders of plasma-protein metabolism, not elsewhere classified; Z68.20 Body mass index [BMI] 20.0-20.9, adult; J43.9 Emphysema, unspecified

== ENCOUNTER 2019-03-05 18:19 | Inpatient (IN) | payer MEDICARE ==
[~2019-03-05] VITALS: Ht 162.6 cm; Wt 64.9 kg
[~2019-03-05 18:19] MED LIST changes: +ZYVOX600 MG PO
[2019-03-05] MEDS ORDERED: HYDROCODON-ACE1 EA10 PO (18:26)
[2019-03-05] MEDS ORDERED: OMEPRAZOLE40 MG PO (18:27)
[2019-03-05] MEDS ORDERED: REGLAN10 MG PO (18:27)
[2019-03-05] MEDS ORDERED: KLOR-CON 1010 MEQ PO (18:28)
[2019-03-05] MEDS ORDERED: ZYRTEC10 MG PO (18:29)
[2019-03-05] MEDS ORDERED: SENNA S TABLET1 TAB PO (18:29)
[2019-03-05] MEDS ORDERED: ALBUTEROL2.5 MG/3 M INH (18:30)
[2019-03-05] MEDS ORDERED: MULTIVITAMIN WITH MI (18:30)
[2019-03-05] MEDS ORDERED: MYLANTA / MAALO30 ML (18:31)
[2019-03-05] MEDS ORDERED: ZOFRAN ODT4 MG/UDTAB PO (18:32)
[2019-03-05 19:01] VITALS: BP 111/72
[2019-03-05 19:09] LABS: BASOPHILS 0.2 % (0-2); EOSINOPHILS 0.1 % (0-7); HEMATOCRIT 34.6 % (36.0-48.0); HEMOGLOBIN 10.2 g/dL (12-16); IMMATURE GRANULOCYTES 0.5 % (0-5); LYMPHOCYTES 1.4 % (15-50); MCH 27.8 pg (26.0-34.0); MCHC 29.5 g/dL (31.0-37.0); MCV 94.3 fL (80.0-100.0); MEAN PLATELET VOLUME 10.3 fL (7.4-10.4); MONOCYTES 5.4 % (2-11); NEUTROPHILS 92.4 % (40-80); PLATELET COUNT 315 10x3/uL (130-400); RBC 3.67 10x6/uL (4.00-5.40); RDW 15.4 % (11.5-14.5); WBC 19.8 10x3/uL (4.8-10.8)
[2019-03-05 19:22] LABS: ALBUMIN 2.7 g/dL (3.4-5.0); ALKALINE PHOSPHATASE 108 U/L (46-116); ALT (SGPT) 16 U/L (10-68); BILIRUBIN - TOTAL 0.28 mg/dL (0.2-1.3); CALC OSMOLALITY 282 mosm/kg (275-300); CALCIUM 9.4 mg/dL (8.5-10.1); CHLORIDE - SERUM 103 mmol/L (98-107); CREATININE - SERUM 0.6 mg/dL (0.6-1.3); GLUCOSE 125 mg/dL (74-106); PROTEIN - SERUM 7.2 g/dL (6.4-8.2); SODIUM 141 mmol/L (136-145); UREA NITROGEN 16 mg/dL (7-18); eGFR NON AFRICAN AMERICAN > 90 mL/min (90-120)
[2019-03-05 19:25] LABS: APPEARANCE CLEAR (CLEAR); BILIRUBIN NEGATIVE (NEGATIVE); COLOR YELLOW (YELLOW); GLUCOSE NEGATIVE (NEGATIVE); KETONE SMALL mg/dL (NEGATIVE); NITRITE NEGATIVE (NEGATIVE); PROTEIN 1+ mg/dL (NEGATIVE); SPECIFIC GRAVITY 1.015 (1.005-1.020); UROBILINOGEN NORMAL (NORMAL)
[2019-03-05 19:25] LABS: AMYLASE - SERUM 32 U/L (25-115); LIPASE 50 U/L (73-393); TROPONIN-I 0.056 ng/mL (0.000-0.060)
[2019-03-05 19:26] LABS: BACTERIA MODERATE /hpf (NEGATIVE); RED CELLS - URINE 0-5 /hpf (0-5)
[2019-03-05 19:27] LABS: EPITHELIAL CELLS 0-5 /hpf (0-5)
[2019-03-06] VITALS (7 sets, daily range): BP systolic 109–183; BP diastolic 58–90; Ht 162.6 cm; Wt 64.9 kg
[2019-03-06 05:31] LABS: BASOPHILS 0.1 % (0-2); EOSINOPHILS 0.5 % (0-7); HEMATOCRIT 31.6 % (36.0-48.0); HEMOGLOBIN 9.3 g/dL (12-16); IMMATURE GRANULOCYTES 0.4 % (0-5); LYMPHOCYTES 3.8 % (15-50); MCH 27.8 pg (26.0-34.0); MCHC 29.4 g/dL (31.0-37.0); MCV 94.3 fL (80.0-100.0); MONOCYTES 10.8 % (2-11); NEUTROPHILS 84.4 % (40-80); PLATELET COUNT 324 10x3/uL (130-400); RBC 3.35 10x6/uL (4.00-5.40); RDW 15.5 % (11.5-14.5); WBC 16.7 10x3/uL (4.8-10.8)
[2019-03-06 06:14] LABS: ALBUMIN 2.3 g/dL (3.4-5.0); ALKALINE PHOSPHATASE 91 U/L (46-116); ALT (SGPT) 12 U/L (10-68); CALC OSMOLALITY 289 mosm/kg (275-300); CALCIUM 9.2 mg/dL (8.5-10.1); CARBON DIOXIDE 30.6 mmol/L (21.0-32.0); CHLORIDE - SERUM 107 mmol/L (98-107); CREATININE - SERUM 0.6 mg/dL (0.6-1.3); GLUCOSE 90 mg/dL (74-106); POTASSIUM - SERUM 3.8 mmol/L (3.5-5.1); PROTEIN - SERUM 6.9 g/dL (6.4-8.2); SODIUM 145 mmol/L (136-145); TROPONIN-I 0.049 ng/mL (0.000-0.060); UREA NITROGEN 15 mg/dL (7-18); eGFR NON AFRICAN AMERICAN > 90 mL/min (90-120)
[2019-03-07 01:33] VITALS: BP 151/81
[2019-03-07 04:56] VITALS: BP 165/79
[2019-03-07 06:39] LABS: BASOPHILS 0.1 % (0-2); EOSINOPHILS 1.3 % (0-7); HEMATOCRIT 31.1 % (36.0-48.0); HEMOGLOBIN 9.2 g/dL (12-16); IMMATURE GRANULOCYTES 0.2 % (0-5); LYMPHOCYTES 4.8 % (15-50); MCH 27.7 pg (26.0-34.0); MCHC 29.6 g/dL (31.0-37.0); MCV 93.7 fL (80.0-100.0); MEAN PLATELET VOLUME 10.7 fL (7.4-10.4); MONOCYTES 10.8 % (2-11); NEUTROPHILS 82.8 % (40-80); PLATELET COUNT 314 10x3/uL (130-400); RBC 3.32 10x6/uL (4.00-5.40); RDW 15.6 % (11.5-14.5)
[2019-03-07 06:44] LABS: WBC 12.2 10x3/uL (4.8-10.8)
[2019-03-07 06:54] LABS: ALBUMIN 2.4 g/dL (3.4-5.0); ANION GAP 8.8 mmol/L (8-16); BILIRUBIN - TOTAL 0.2 mg/dL (0.2-1.3); CARBON DIOXIDE 34.4 mmol/L (21.0-32.0); POTASSIUM - SERUM 4.2 mmol/L (3.5-5.1); PROTEIN - SERUM 6.7 g/dL (6.4-8.2)
[2019-03-07 07:01] LABS: CREATININE - SERUM 0.8 mg/dL (0.6-1.3)
[2019-03-07 09:09] VITALS: BP 118/64
[2019-03-07 11:43] VITALS: BP 96/76
--- NOTE | 2019-03-07 15:01 | MORECARE ---
CASE MANAGEMENT DISCHARGE SUMMARY PATIENT: SAMEERA JOAQUIN UNIT: [id number] ADM DATE: 03/05/19 AGE: 88 : 30 SEX: F ROOM/BED: D.2229 AUTHOR: OZ TIRADO PHYSICIAN: REFERRING PHYSICIAN: BIBI SHEEHAN MD DATE OF SERVICE: 03/07/19 Discharge Plan Patient Name: SAMEERA JOAQUIN Facility: [facility]:[place] : 1930 Planned Disposition: Nursing Facility [facility] Cert Anticipated Discharge Date: Discharge Date: Expected LOS: Initial Reviewer: [email or web address] Initial Review Date: 03/07/2019 Generated: 03/07/19 4:01 pm External Providers External Provider: [facility] Next Contact Date: Service Request Date: Service Type: Resolution: Reviewer: Comments: Patient Name: SAMEERA JOAQUIN Page [id number] at 1501 All edits/amendments must be made on the electronic document DICTATION DATE: 03/07/19 1501 MEDICAL PHYSIOLOGIST: FLORI 03/07/19 150 RPT#: [id number] DC DATE: STATUS: ADM IN [facility] [address] [place] [address] END OF REPORT
--- NOTE | 2019-03-07 15:11 | MORECARE ---
CASE MANAGEMENT DISCHARGE SUMMARY PATIENT: SAMEERA JOAQUIN UNIT: [id number] ADM DATE: 03/05/19 AGE: 88 : 30 SEX: F ROOM/BED: D.2229 AUTHOR: CELESTINO,DOC PHYSICIAN: REFERRING PHYSICIAN: BIBI SHEEHAN MD DATE OF SERVICE: 03/07/19 Discharge Plan Patient Name: SAMEERA JOAQUIN Facility: [facility]:[place] : 1930 Planned Disposition: Nursing Facility [facility] Cert Anticipated Discharge Date: Discharge Date: Expected LOS: Initial Reviewer: [email or web address] Initial Review Date: 03/07/2019 Generated: 03/07/19 4:10 pm Comments DCP- Discharge Planning Updated by [email or web address]: Robyn Aranda on 03/07/19 2:[address] Patient Name: SAMEERA JOAQUIN Admission Status: ER Accout number: [id number] Admission Date: 03-05-2019 : 1930 Admission Diagnosis: Attending: BIBI SHEEHAN Current LOS: 2 Anticipated DC Date: Planned Disposition: Nursing Facility [facility] Cert Primary Insurance: MEDICARE A & B Discharge Planning Comments: CM met with patient, 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 She is very hard of hearing. I spoke with her sister in law, Alison, and she states that she will return to [facility] on discharge. I spoke with [facility] and faxed updated clinical. CM will continue to follow and assist with discharge planning/needs. Suction Worker: Robyn Aranda DCPIA - Discharge Planning Initial Assessment Updated by [email or web address]: Robyn Aranda on 03/07/19 3:03 pm * Is the patient Alert and Oriented? No * PCP Dr. Rubin * Preadmission Environment [facility] * Facility Name [facility] * ADLs Partial Dependent * Partial ADLs (Assistance needed) Ambulation Bathing Dressing Medication Management Toileting Transfers * Other Equipment All equipment provided by retirement. She wears oxygen at 4 liters NC at all times * List name and contact numbers for known caregivers / representatives who currently or will assist patient after discharge: Onur Lew - brother - [phone] or [phone] * Verbal permission to speak to the caregivers and representatives has been obtained from the patient. Yes * Community resources currently utilized None * Additional services required to return to the preadmission environment? No * Can the patient safely return to the preadmission environment? Yes * Has this patient been hospitalized within the prior 30 days at any hospital? No Coverage Notice Reviewer: [email or web address] Yanelis Aranda Notice Issued Date-Time: 03/07/2019 15:10 Notice Type: Patient Choice Letter Notice Delivered To: Family Member Relationship to Patient: Sister in Law Auto Garage Mechanic Name: Alison Lew Delivery Method: PHONE - Phone Kavya Days: Prior Verbal Notification: Recipient Understood Notice: Yes Recipient Signature: Med Rec Note Co-signed by Attending: Coverage Notice Comment: [facility] for [facility] Last DP export: 03/07/19 2:01 Patient Name: SAMEERA JOAQUIN Page [id number] at 1511 All edits/amendments must be made on the electronic document DICTATION DATE: 03/07/191509 HAND DEICER ELEMENT WINDER: FLORI 03/07/191509 RPT#: [id number] DC DATE: STATUS: ADM IN [facility] [address] [place] [address] END OF REPORT
[2019-03-07 16:20] VITALS: BP 144/86
[2019-03-07 21:13] VITALS: BP 108/67
[2019-03-08 01:20] VITALS: BP 112/68
[2019-03-08 05:11] VITALS: BP 126/85
[2019-03-08 05:31] LABS: BASOPHILS 0.3 % (0-2); EOSINOPHILS 2.3 % (0-7); HEMATOCRIT 31.6 % (36.0-48.0); HEMOGLOBIN 9.7 g/dL (12-16); IMMATURE GRANULOCYTES 0.4 % (0-5); LYMPHOCYTES 5.9 % (15-50); MCH 28.8 pg (26.0-34.0); MCHC 30.7 g/dL (31.0-37.0); MCV 93.8 fL (80.0-100.0); MONOCYTES 11.8 % (2-11); NEUTROPHILS 79.3 % (40-80); PLATELET COUNT 326 10x3/uL (130-400); RBC 3.37 10x6/uL (4.00-5.40); RDW 15.5 % (11.5-14.5); WBC 11.2 10x3/uL (4.8-10.8)
[2019-03-08 06:21] LABS: ALBUMIN 2.4 g/dL (3.4-5.0); ALKALINE PHOSPHATASE 87 U/L (46-116); BILIRUBIN - TOTAL 0.17 mg/dL (0.2-1.3); CALC OSMOLALITY 277 mosm/kg (275-300); CALCIUM 8.9 mg/dL (8.5-10.1); CARBON DIOXIDE 29.1 mmol/L (21.0-32.0); CHLORIDE - SERUM 103 mmol/L (98-107); CREATININE - SERUM 0.6 mg/dL (0.6-1.3); GLUCOSE 97 mg/dL (74-106); POTASSIUM - SERUM 4.1 mmol/L (3.5-5.1); PROTEIN - SERUM 6.7 g/dL (6.4-8.2); SODIUM 140 mmol/L (136-145); UREA NITROGEN 10 mg/dL (7-18); eGFR NON AFRICAN AMERICAN > 90 mL/min (90-120)
[2019-03-08 06:23] LABS: ALT (SGPT) 20 U/L (10-68)
[2019-03-08 08:01] VITALS: BP 157/79
[2019-03-08 13:57] VITALS: BP 149/77
[2019-03-08 16:09] VITALS: BP 123/81
[2019-03-08 20:38] VITALS: BP 119/71
[2019-03-09 01:26] VITALS: BP 124/80
[2019-03-09 04:41] VITALS: BP 120/74
[2019-03-09 05:34] LABS: BASOPHILS 0.2 % (0-2); EOSINOPHILS 2.6 % (0-7); HEMATOCRIT 31.6 % (36.0-48.0); HEMOGLOBIN 9.4 g/dL (12-16); IMMATURE GRANULOCYTES 0.2 % (0-5); LYMPHOCYTES 5.9 % (15-50); MCH 27.6 pg (26.0-34.0); MCHC 29.7 g/dL (31.0-37.0); MCV 92.9 fL (80.0-100.0); MEAN PLATELET VOLUME 10.7 fL (7.4-10.4); MONOCYTES 11.4 % (2-11); NEUTROPHILS 79.7 % (40-80); PLATELET COUNT 334 10x3/uL (130-400); RDW 15.4 % (11.5-14.5)
[2019-03-09 05:51] LABS: ALBUMIN 2.3 g/dL (3.4-5.0); ALKALINE PHOSPHATASE 84 U/L (46-116); CALC OSMOLALITY 273 mosm/kg (275-300); CALCIUM 9.1 mg/dL (8.5-10.1); CARBON DIOXIDE 31.4 mmol/L (21.0-32.0); CHLORIDE - SERUM 102 mmol/L (98-107); CREATININE - SERUM 0.5 mg/dL (0.6-1.3); GLUCOSE 98 mg/dL (74-106); POTASSIUM - SERUM 3.5 mmol/L (3.5-5.1); PROTEIN - SERUM 6.7 g/dL (6.4-8.2); SODIUM 138 mmol/L (136-145); UREA NITROGEN 8 mg/dL (7-18); eGFR NON AFRICAN AMERICAN > 90 mL/min (90-120)
[2019-03-09 06:06] LABS: ALT (SGPT) 27 U/L (10-68)
[2019-03-09 08:43] VITALS: BP 144/79
[2019-03-09] MEDS ORDERED: MUCINEX600 MG PO (12:05)
[2019-03-09] MEDS ORDERED: TESSALON PERLE100 MG PO (12:05)
[2019-03-09] MEDS ORDERED: OMNICEF300 MG PO (12:06)
[2019-03-09] MEDS ORDERED: ZITHROMAX500 MG PO (12:06)
[2019-03-09] MEDS ORDERED: PROTONIX40 MG PO (12:06)
[2019-03-09 12:54] VITALS: BP 106/70
--- NOTE | 2019-03-09 13:17 | MORECARE ---
CASE MANAGEMENT DISCHARGE SUMMARY PATIENT: SAMEERA JOAQUIN UNIT: [id number] ADM DATE: 03/05/19 AGE: 88 : 30 SEX: F ROOM/BED: D.2229 AUTHOR: CELESTINODOC PHYSICIAN: REFERRING PHYSICIAN: BIBI SHEEHAN MD DATE OF SERVICE: 03/09/19 Discharge Plan Patient Name: SAMEERA JOAQUIN Facility: [facility]:[place] : 1930 Planned Disposition: Nursing Facility [facility] Cert Anticipated Discharge Date: Discharge Date: Expected LOS: Initial Reviewer: [email or web address] Initial Review Date: 03/07/2019 Generated: 03/09/19 2:16 pm Comments DCP- Discharge Planning Updated by [email or web address]: Robyn Aranda on 03/09/19 12:[address] Received discharge orders. I called Lillian at [facility] and they will accept today to a skilled bed. She states she will get with the dedicated regional driver and have him transport her there with oxygen. DC orders/MAR and clinical faxed. I called her sister in law and informed she will be going back today and she is in agreement. CM will continue to follow and assist with discharge planning/needs. DCP- Discharge Planning Updated by [id number]: Robyn Aranda on 03/07/19 2:[address] Patient Name: SAMEERA JOAQUIN Admission Status: ER Accout number: [id number] Admission Date: 03-05-2019 : 1930 Admission Diagnosis: Attending: BIBI SHEEHAN Current LOS: 2 Anticipated DC Date: Planned Disposition: Nursing Facility [facility] Cert Primary Insurance: MEDICARE A & B Discharge Planning Comments: CM met with patient, she is a half-way resident of [facility], 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 She is very hard of hearing. I spoke with her sister in law, Alison, and she states that she will return to [facility] on discharge. I spoke with [facility] and faxed updated clinical. CM will continue to follow and assist with discharge planning/needs. Convertible Top Installer: Robyn Aranda DCPIA - Discharge Planning Initial Assessment Updated by [id number]: Robyn Aranda on 03/07/19 3:03 pm * Is the patient Alert and Oriented? No * PCP Dr. Rubin * Preadmission Environment [facility] * Facility Name [facility] * ADLs Partial Dependent * Partial ADLs (Assistance needed) Ambulation Bathing Dressing Medication Management Toileting Transfers * Other Equipment All equipment provided by custodial. She wears oxygen at 4 liters NC at all times * List name and contact numbers for known caregivers / representatives who currently or will assist patient after discharge: Onur Lew - brother - [phone] or [phone] * Verbal permission to speak to the caregivers and representatives has been obtained from the patient. Yes * Community resources currently utilized None * Additional services required to return to the preadmission environment? No * Can the patient safely return to the preadmission environment? Yes * Has this patient been hospitalized within the prior 30 days at any hospital? No Coverage Notice Reviewer: [email or web address] Yanelis Aranda Notice Issued Date-Time: 03/07/2019 15:10 Notice Type: Patient Choice Letter Notice Delivered To: Family Member Relationship to Patient: Sister in Law Supervisor Boarding Name: Alison Lew Delivery Method: PHONE - Phone Kavya Days: Prior Verbal Notification: Recipient Understood Notice: Yes Recipient Signature: Med Rec Note Co-signed by Attending: Coverage Notice Comment: [facility] for [facility] Reviewer: [email or web address] Yanelis Aranda Notice Issued Date-Time: 03/09/2019 12:50 Notice Type: IM Discharge Notice Notice Delivered To: Family Member Relationship to Patient: Son in Law Supervisor Boarding Name: Alison Lew Delivery Method: CERT - Certified Mail Kavya Days: Prior Verbal Notification: Recipient Understood Notice: Yes Recipient Signature: Med Rec Note Co-signed by Attending: Coverage Notice Comment: Called and informed sister in law of IMM, she voiced understanding and agrees with discharge today. IMM will be sent to her via certified mail. Last DP export: 03/07/19 2:11 Patient Name: SAMEERA JOAQUIN Page [id number] at 1317 All edits/amendments must be made on the electronic document DICTATION DATE: 03/09/19 1316 PROOF SORTER: FLORI 03/09/19 1316 RPT#: [id number] DC DATE: STATUS: ADM IN [facility] [address] [place] [address] END OF REPORT
--- NOTE | 2019-03-09 16:49 | MORECARE ---
CASE MANAGEMENT DISCHARGE SUMMARY PATIENT: SAMEERA JOAQUIN UNIT: [id number] ADM DATE: 03/05/19 AGE: 88 : 30 SEX: F ROOM/BED: D.2229 AUTHOR: CELESTINO,DOC PHYSICIAN: REFERRING PHYSICIAN: BIBI SHEEHAN MD DATE OF SERVICE: 03/09/19 Discharge Plan Patient Name: SAMEERA JOAQUIN Facility: [facility]:[place] : 1930 Planned Disposition: Nursing Facility [facility] Cert Anticipated Discharge Date: Discharge Date: 03/09/2019 Expected LOS: 0 Initial Reviewer: [email or web address] Initial Review Date: 03/07/2019 Generated: 03/09/19 5:48 pm Comments DCP- Discharge Planning Updated by [email or web address]: Robyn Aranda on 03/09/19 12:[address] Received discharge orders. I called Lillian at [facility] and they will accept today to a skilled bed. She states she will get with the subway train driver and have him transport her there with oxygen. DC orders/MAR and clinical faxed. I called her sister in law and informed she will be going back today and she is in agreement. CM will continue to follow and assist with discharge planning/needs. DCP- Discharge Planning Updated by [email or web address]: Robyn Aranda on 03/07/19 2:[address] Patient Name: SAMEERA JOAQUIN Admission Status: ER Accout number: [id number] Admission Date: 03-05-2019 : 1930 Admission Diagnosis: Attending: BIBI SHEEHAN Current LOS: 2 Anticipated DC Date: Planned Disposition: Nursing Facility [facility] Cert Primary Insurance: MEDICARE A & B Discharge Planning Comments: CM met with patient, she is a [facility] resident of [facility], 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 She is very hard of hearing. I spoke with her sister in law, Alison, and she states that she will return to [facility] on discharge. I spoke with [facility] and faxed updated clinical. CM will continue to follow and assist with discharge planning/needs. Lithograph Press Feeder: Robyn Aranda DCPIA - Discharge Planning Initial Assessment Updated by [id number]: Robyn Aranda on 03/07/19 3:03 pm * Is the patient Alert and Oriented? No * PCP Dr. Rubin * Preadmission Environment Race Engine Builder Halfway * Facility Name [facility] * ADLs Partial Dependent * Partial ADLs (Assistance needed) Ambulation Bathing Dressing Medication Management Toileting Transfers * Other Equipment All equipment provided by senior care. She wears oxygen at 4 liters NC at all times * List name and contact numbers for known caregivers / representatives who currently or will assist patient after discharge: Onur Lew - brother - [phone] or [phone] * Verbal permission to speak to the caregivers and representatives has been obtained from the patient. Yes * Community resources currently utilized None * Additional services required to return to the preadmission environment? No * Can the patient safely return to the preadmission environment? Yes * Has this patient been hospitalized within the prior 30 days at any hospital? No Coverage Notice Reviewer: [id number] Aranda Notice Issued Date-Time: 03/07/2019 15:10 Notice Type: Patient Choice Letter Notice Delivered To: Family Member Relationship to Patient: Sister in Law Tester Regulator Name: Alison Lew Delivery Method: PHONE - Phone Kavya Days: Prior Verbal Notification: Recipient Understood Notice: Yes Recipient Signature: Med Rec Note Co-signed by Attending: Coverage Notice Comment: [facility] for [facility] Reviewer: [email or web address] Yanelis Aranda Notice Issued Date-Time: 03/09/2019 12:50 Notice Type: IM Discharge Notice Notice Delivered To: Family Member Relationship to Patient: Son in Law Tester Regulator Name: Alison Lew Delivery Method: CERT - Certified Mail Kavya Days: Prior Verbal Notification: Recipient Understood Notice: Yes Recipient Signature: Med Rec Note Co-signed by Attending: Coverage Notice Comment: Called and informed sister in law of IMM, she voiced understanding and agrees with discharge today. IMM will be sent to her via certified mail. Last DP export: 03/09/19 12:17 Patient Name: SAMEERA JOAQUIN Page [id number] at 1254 All edits/amendments must be made on the electronic document DICTATION DATE: 03/09/191647 AUTOMOBILE MECHANIC MOTOR: FLORI 03/09/191647 RPT#: [id number] CA DATE:03/09/19 STATUS: DIS IN [facility] [address] [place] [address] END OF REPORT
== END 2019-03-09 15:18 | DRG 871 ==
LOC: D.ER 18:19 → D.MS 20:21
PROVIDERS: Emergency Medicine; Family Medicine; ADMIT Internal Medicine Nephrology; ATTEND Internal Medicine Nephrology
PROC: 05HY33Z Insertion of Infusion Device into Upper Vein, Percutaneous Approach (ICD-10-PCS; principal; 2019-03-07)
DX: A41.9 Sepsis, unspecified organism (principal); J18.9 Pneumonia, unspecified organism; J96.01 Acute respiratory failure with hypoxia; N39.0 Urinary tract infection, site not specified; E86.0 Dehydration; D64.9 Anemia, unspecified; I25.10 Atherosclerotic heart disease of native coronary artery without angina pectoris; Z66 Do not resuscitate; K21.9 Gastro-esophageal reflux disease without esophagitis; E73.9 Lactose intolerance, unspecified; F32.9 Major depressive disorder, single episode, unspecified; F03.90 Unspecified dementia, unspecified severity, without behavioral disturbance, psychotic disturbance, mood disturbance, and anxiety; J30.2 Other seasonal allergic rhinitis; K59.09 Other constipation; I10 Essential (primary) hypertension; B96.4 Proteus (mirabilis) (morganii) as the cause of diseases classified elsewhere; Z87.891 Personal history of nicotine dependence

== ENCOUNTER 2019-04-18 03:18 | Inpatient (IN) | payer MEDICARE ==
[~2019-04-18] VITALS: Ht 152.4 cm; Wt 54.9 kg
[2019-04-18] VITALS (8 sets, daily range): BP systolic 80–150; BP diastolic 55–93; BMI 20.9
[~2019-04-18 03:18] MED LIST changes: +ALBUTEROL2.5 MG/3 M INH; +HYDROCODON-ACE1 EA10 PO; +KLOR-CON 1010 MEQ PO; +MUCINEX600 MG PO; +MULTIVITAMIN WITH MI; +MYLANTA / MAALO30 ML; +OMEPRAZOLE40 MG PO; +SENNA S TABLET1 TAB PO; +TESSALON PERLE100 MG PO; +ZITHROMAX500 MG PO; +ZOFRAN ODT4 MG/UDTAB PO; +ZYRTEC10 MG PO
--- NOTE | 2019-04-18 04:30 | NUR ---
LAB AT PT BEDSIDE.
[2019-04-18 04:38] LABS: BASOPHILS 0.2 % (0-2); EOSINOPHILS 2.2 % (0-7); HEMATOCRIT 33.2 % (36.0-48.0); HEMOGLOBIN 9.3 g/dL (12-16); IMMATURE GRANULOCYTES 0.3 % (0-5); LYMPHOCYTES 6.2 % (15-50); MCH 25.1 pg (26.0-34.0); MCV 89.5 fL (80.0-100.0); MEAN PLATELET VOLUME 10.5 fL (7.4-10.4); MONOCYTES 10.4 % (2-11); NEUTROPHILS 80.7 % (40-80); PLATELET COUNT 343 10x3/uL (130-400); RBC 3.71 10x6/uL (4.00-5.40); RDW 16.5 % (11.5-14.5); WBC 12.7 10x3/uL (4.8-10.8)
[2019-04-18 04:47] LABS: CALC OSMOLALITY 293 mosm/kg (275-300); CALCIUM 9.4 mg/dL (8.5-10.1); CARBON DIOXIDE 35.7 mmol/L (21.0-32.0); CHLORIDE - SERUM 108 mmol/L (98-107); CREATININE - SERUM 0.8 mg/dL (0.6-1.3); GLUCOSE 105 mg/dL (74-106); POTASSIUM - SERUM 4.1 mmol/L (3.5-5.1); SODIUM 145 mmol/L (136-145); UREA NITROGEN 26 mg/dL (7-18); eGFR NON AFRICAN AMERICAN 72 mL/min (90-120)
[2019-04-18 04:50] LABS: INR 1.14 (0.85-1.17); PROTIME 14.1 SECONDS (11.6-15.0)
--- NOTE | 2019-04-18 04:53 | NUR ---
PT SLEEPING ON BED. O2 NC IN PLACE.
[2019-04-18 05:04] LABS: ALBUMIN 2.2 g/dL (3.4-5.0); ALKALINE PHOSPHATASE 89 U/L (46-116); ALT (SGPT) 25 U/L (10-68); BILIRUBIN - TOTAL 0.13 mg/dL (0.2-1.3); CKMB 1.4 U/L (0.0-3.6); CREATINE KINASE 33 UL (21-215); PRO BNP 3204 pg/mL (0-450); PROTEIN - SERUM 7.3 g/dL (6.4-8.2); TROPONIN-I 0.021 ng/mL (0.000-0.060)
--- NOTE | 2019-04-18 05:25 | NUR ---
PT C/O PAIN TO LLE. PILLOW PLACED UNDER LEG. PT RESTING COMFORTABLY AT THIS TIME.
--- NOTE | 2019-04-18 11:44 | MORECARE ---
CASE MANAGEMENT DISCHARGE SUMMARY PATIENT: SAMEERA JOAQUIN UNIT: [id number] ADM DATE: 04/18/19 AGE: 88 : 30 SEX: F ROOM/BED: D.1210 AUTHOR: OZ TIRADO PHYSICIAN: REFERRING PHYSICIAN: JENNY MCCARTNEY MD DATE OF SERVICE: 04/18/19 Discharge Plan Patient Name: SAMEERA JOAQUIN Facility: [facility]:[place] : 1930 Planned Disposition: Intermediate Facility Anticipated Discharge Date: 04/20/19 Discharge Date: Expected LOS: 2 Initial Reviewer: [email or web address] Initial Review Date: 04/18/2019 Generated: 04/18/19 12:44 pm Patient Name: SAMEERA JOAQUIN Page [phone] at 1144 All edits/amendments must be made on the electronic document DICTATION DATE: 04/18/19 1144 SPONGE MAKER: FLORI 04/18/19 1144 RPT#: [id number] DC DATE: STATUS: ADM IN [facility] [address] [place] [address] END OF REPORT
--- NOTE | 2019-04-18 11:54 | MORECARE ---
CASE MANAGEMENT DISCHARGE SUMMARY PATIENT: SAMEERA JOAQUIN UNIT: [id number] ADM DATE: 04/18/19 AGE: 88 : 30 SEX: F ROOM/BED: D.1210 AUTHOR: OZ TIRADO PHYSICIAN: REFERRING PHYSICIAN: JENNY MCCARTNEY MD DATE OF SERVICE: 04/18/19 Discharge Plan Patient Name: SAMEERA JOAQUIN Facility: [facility]:[place] : 1930 Planned Disposition: Long Term Facility Anticipated Discharge Date: 04/20/19 Discharge Date: Expected LOS: 2 Initial Reviewer: [email or web address] Initial Review Date: 04/18/2019 Generated: 04/18/19 12:54 pm DCPIA - Discharge Planning Initial Assessment Updated by [email or web address]: Isabella Blevins on 04/18/19 11:52 am * Is the patient Alert and Oriented? Yes * How many steps to enter\exit or inside your home? None * PCP Dr. Rubin * Pharmacy [facility] * Preadmission Environment [facility] * Facility Name [facility] * ADLs Total Dependent * Equipment Wheelchair * List name and contact numbers for known caregivers / representatives who currently or will assist patient after discharge: Onur hamm [phone] [facility] * Verbal permission to speak to the caregivers and representatives has been obtained from the patient. Yes * Additional services required to return to the preadmission environment? No * Can the patient safely return to the preadmission environment? Yes * Has this patient been hospitalized within the prior 30 days at any hospital? Yes Last DP export: 04/18/19 10:44 Patient Name: SAMEERA JOAQUIN Page [id number] at 1154 All edits/amendments must be made on the electronic document DICTATION DATE: 04/18/19 1154 [facility] UNIT NURSE: FOLRI 04/18/19 1154 RPT#: [id number] DC DATE: STATUS: ADM IN [facility] [address] [place] [address] END OF REPORT
--- NOTE | 2019-04-18 12:01 | MORECARE ---
CASE MANAGEMENT DISCHARGE SUMMARY PATIENT: SAMEERA JOAQUIN UNIT: [id number] ADM DATE: 04/18/19 AGE: 88 : 30 SEX: F ROOM/BED: D.1210 AUTHOR: CELESTINO,DOC PHYSICIAN: REFERRING PHYSICIAN: JENNY MCCARTNEY MD DATE OF SERVICE: 04/18/19 Discharge Plan Patient Name: SAMEERA JOAQUIN Facility: [facility]:[place] : 1930 Planned Disposition: Long Term Facility Anticipated Discharge Date: 04/20/19 Discharge Date: Expected LOS: 2 Initial Reviewer: [email or web address] Initial Review Date: 04/18/2019 Generated: 04/18/19 1:01 pm Comments DCP- Discharge Planning Updated by [email or web address]: Isabella Blevins on 04/18/19 10:[address] DC PLAN: Return to [facility] - Resident DC NEEDS: Return to [place]. CM met with patient who is extremely hard of hearting and could not hear to answer questions. CM called her brother listed on her facesheet to complete assessment. SPoke to Onur Lew, , who reported the patient is a resident at [facility]. He stated she will return there upon discharge. He reports the patient requires assistance in all areas of ADL's. She is wheelchair bound and does not ambulate. He denied further known dc needs other than returning to the [facility]. Cm will continue to follow and will assist as needed with dc plans/needs. Isabella Blevins RN, [facility] DCPIA - Discharge Planning Initial Assessment Updated by [email or web address]: Isabella Blevins on 04/18/19 11:52 am * Is the patient Alert and Oriented? Yes * How many steps to enter\exit or inside your home? None * PCP Dr. Rubin * [facility] * [facility]readmission Environment [facility] * Facility Name [facility] * ADLs Total Dependent * Equipment Wheelchair * List name and contact numbers for known caregivers / representatives who currently or will assist patient after discharge: Onru Lew - brother - [phone] [facility] * Verbal permission to speak to the caregivers and representatives has been obtained from the patient. Yes * Additional services required to return to the preadmission environment? No * Can the patient safely return to the preadmission environment? Yes * Has this patient been hospitalized within the prior 30 days at any hospital? Yes Last DP export: 04/18/19 10:54 Patient Name: SAMEERA JOAQUIN Page [id number] at 1201 All edits/amendments must be made on the electronic document DICTATION DATE: 04/18/19 120 FOIL CUTTER: FLORI 04/18/19 120 RPT#: [id number] DC DATE: STATUS: ADM IN [facility] [address] [place] [address] END OF REPORT
--- NOTE | 2019-04-18 13:52 | NUR ---
I have reviewed this patient and I concur with the Shift Assessment completed by the Licensed Practical Nurse today this shift.
--- NOTE | 2019-04-18 18:37 | NUR ---
PT IS REPEATING OVER AND OVER SHE CANT BREATHE. RESP HERE AND DID BREATHING TX AND STARTED ON 9L/M HIGH FLOW. ATTEMPTED TO SUCTION BUT GAGS WITH IT JUST IN THE BACK OF HER THROAT. HAS BEEN VOMITING SMALL AMTS WITH TOTAL OF 4 TIMES TODAY. ZOFRAN GIVEN AND ALSO PROTONIX STARTED BY DR. MCCARTNEY. PT IS RESTING QUIETLY AT PRESENT TIME. IV WAS INFILTRATED AND WAS DC'D. RESTARTED IN RIGHT AC X 1 ATTEMPT. PT TOLERATED WELL.
--- NOTE | 2019-04-18 20:00 | NUR ---
EVENING ROUNDS COMPLETED. VSS, WITH HR 116. PT HAS BEEN VOMITING UNCONTROLABLY. CALLED AND NOTIFIED, OTILIO RODRIGUEZ. HE ORDERED TO ADMINISTER ZOFRAN NOW. AND CALL BACK IN 2HRS IF NO IMPROVING WITH THE NAUSEA/VOMITING. WILL PT ALSO C/O THAT SHE CANT BREATHE. NOTIFIED RT. RT PLACED PT ON 9L HF/OXYMIZER. PT SPO2 94 @ THIS TIME. WILL CTM.
--- NOTE | 2019-04-18 21:25 | NUR ---
IV 4MG ZOFRAN DC'D. IV ZOFRAN DRIP STARTED AT THIS TIME. CLEANED PT AND PROVIDED FRESH LINEN, GOWN AND EMESIS BAG. WILL CTM.
--- NOTE | 2019-04-18 22:46 | NUR ---
NOTIFIED JASPREET RODRIGUEZ ABOUT PT'S INCREASING SOB, WITH INCREASED HR. ALSO NOTIFIED HIM THAT PT IS RECIEVING BREATHING TX WITH RT AT THIS TIME. BUT PT IS NOT TOLERATING WELL. JASPREET KINGSTONED 1/2NS @ 50MLS/HR ALONGSIDE IV BENADRYL 25MG. AWAITING UTILITY TECHNICIAN TO HELP PULLM MEDS.
--- NOTE | 2019-04-18 23:22 | NUR ---
IV 25MG BENADRYL GIVEN. 1/2NS INFUSING @5OMLS/HR. SPO2 @ 92% ON 9L HF. HR 127. NOTICED A REDUCTION IN FREQUENCY OF N/V. PT COUGHS UP BROWN MUCUS. ALTHOUGH COUGH IS WEAK AND RARE.
[2019-04-19] VITALS (7 sets, daily range): BP systolic 80–118; BP diastolic 50–92; Ht 152.4 cm; Wt 54.9 kg
[2019-04-19 06:36] LABS: CALC OSMOLALITY 295 mosm/kg (275-300); CALCIUM 9.3 mg/dL (8.5-10.1); CARBON DIOXIDE 32.3 mmol/L (21.0-32.0); CHLORIDE - SERUM 111 mmol/L (98-107); CREATININE - SERUM 0.7 mg/dL (0.6-1.3); GLUCOSE 95 mg/dL (74-106); MAGNESIUM - SERUM 1.8 mg/dL (1.8-2.4); PHOSPHOROUS 3.7 mg/dL (2.5-4.9); POTASSIUM - SERUM 4.4 mmol/L (3.5-5.1); SODIUM 148 mmol/L (136-145); eGFR NON AFRICAN AMERICAN 83 mL/min (90-120)
[2019-04-19 06:43] LABS: UREA NITROGEN 19 mg/dL (7-18)
[2019-04-19 06:51] LABS: BASOPHILS 0.3 % (0-2); EOSINOPHILS 1.3 % (0-7); HEMOGLOBIN 9.9 g/dL (12-16); IMMATURE GRANULOCYTES 0.4 % (0-5); LYMPHOCYTES 5.2 % (15-50); MCH 24.9 pg (26.0-34.0); MCHC 26.8 g/dL (31.0-37.0); MEAN PLATELET VOLUME 10.9 fL (7.4-10.4); NEUTROPHILS 82.8 % (40-80); PLATELET COUNT 385 10x3/uL (130-400); RBC 3.98 10x6/uL (4.00-5.40); RDW 16.7 % (11.5-14.5); WBC 14.1 10x3/uL (4.8-10.8)
--- NOTE | 2019-04-19 08:33 | NUR ---
PATIENT RECIEVED RESTING IN BED WITH HOB ELEVATED. 02 9L HIGH FLOW CANNULA. 02 SAT 88- 90% PATIENT WITH VOMITING AT TIMES WITH ZOFRAN DRIP INFUSING AT 4.7 ML HOUR. PATIENT ENCURAGED TO BREATH THROUGH NOSE AND OUT THROUGH MOUTH. CL IN REACH
--- NOTE | 2019-04-19 13:37 | NUR ---
RESTING IN WITH HOB ELEVATED. SUCTIONED PRN AND PATIENT ALLOWS. 02 SAT 88-90%
--- NOTE | 2019-04-19 17:32 | NUR ---
PATIENT OFF FLOOR TO IR FOR THOROCENTISIS
[2019-04-19 19:31] LABS: PROTEIN - BODY FLUID 2.2 G/DL
--- NOTE | 2019-04-19 19:45 | NUR ---
EVENING ROUNDS COMPLETED. PT IN BED AROUSE TO TOUCH. PT APPEARS LETHARGIC. MOUTH BREATH. APPEARS TO BE GASPING FOR AIR. PT ON 15L O2 HF, SPO2 84. MINIMAL/NO VOMITING NOTED AT THIS TIME. FALL PRECAUTION IN PLACE. PT ON CONTINUOUS O2 MONITORING. SBP UPPER 90'S. PT DENIES ANY NEED FOR COMFORT CARE. WILL CTM.
--- NOTE | 2019-04-19 20:30 | NUR ---
PT LUNGS SOUNDS CRACKLY. O2SAT 75 ON 15L HF O2. CALLED AND NOTIFIED OTILIO RODRIGUEZ FOR ANY FURTHER INTERVENTION. HE STATE TO CALL PULMONOLOGY AND ALSO HOLD ALL PO MEDS AT THIS TIME. DUE TO DIFFULTY SWALLOWING AND RISK FOR CHOKING/ASPIRATION. RT IN PT'S ROOM AT THIS TIME, SHANDRA FINLEY PT. WILL CTM.
[2019-04-19 20:53] LABS: MACROPHAGES BF 7 %; NEUT - BF 24 %
--- NOTE | 2019-04-19 21:14 | NUR ---
NOTIFIED DR. TREVINO THAT PT IS RISK FOR ASPIRATION AND SHE HAS BEEN VOMITING EVEN AFTER ZOFRAN DRIP. HE STATES PT CAN NOT BE PLACED ON BI-PAP AT THIS TIME. HE ONLY ORDERED VAPOTHERM AT THIS TIME.
--- NOTE | 2019-04-19 21:14 | NUR ---
DR. TREVINO, PULMONARY ON-CALL ORDERED TO PLACE PT ON VAPOTHERM 40LPM. CALLED AND NOTIFIED RT.
--- NOTE | 2019-04-19 21:16 | NUR ---
PT CURRENTLY ON VAPOTHERM 40LPM FI02 100% 02SAT 80% AT THIS TIME. WILL CTM.
--- NOTE | 2019-04-19 22:00 | NUR ---
ON ASSESSMENT, PT SPO2 HAD DROPPED FROM 75 TO 45. PT NOT ALERT AND UNRESPONSIVE TO TOUCH OT AUDITORY STIMULUS. CALLED AND NOTIFIED PT'S BROTHER MIGUELINA MUÑIZ ABOUT PT'S DECLINING STATUS. HE STATED THAT HE CAN NOT MAKE IT DOWN TO THE HOSPITAL TONIGHT. HE STATED WE CAN CALL HIM IF OR WHEN PT EXPIRES. WILL CTM.
--- NOTE | 2019-04-19 22:35 | NUR ---
ON ASSESSMENT, PT PT SPO2 WAS 0% ON 40LPM VAPOTHERM. PT WOULD NOT AROUSE AT THIS TIME. NO PULSES FELT ON CAROTID AND FEMORAL AND NO VISIBLE CHEST RISE. CALLED AND NOTIFIED OTILIO RODRIGUEZ AND C[employer]ER [employer]UTIONS COORDINATOR AND RT. AWAITING ER DR AT THIS TIME.
--- NOTE | 2019-04-20 00:18 | NUR ---
ER DR VU PRONOUNCED PT AT THIS TIME.
--- NOTE | 2019-04-20 01:30 | NUR ---
PT FAMILY CALLED AND NOTIFIED. PT FAMILY MAZARIEGOS NINA GAVE TELEPHONE CONSENT TO RELEASE PT'S BODY TO [facility], [place], [place]. POST-MORTEM CARE PERFORMED. PIV REMOVED. AWAITING [facility] AT THIS TIME.
--- NOTE | 2019-04-20 02:41 | NUR ---
HOME ARRIVED. PT WHEELED OUT ON STRETCHER.
--- NOTE | 2019-04-21 10:02 | MORECARE ---
CASE MANAGEMENT DISCHARGE SUMMARY PATIENT: SAMEERA JOAQUIN UNIT: [id number] ADM DATE: 04/18/19 AGE: 88 : 30 SEX: F ROOM/BED: D.1210 AUTHOR: CELESTINODOC PHYSICIAN: REFERRING PHYSICIAN: JENNY MCCARTNEY MD DATE OF SERVICE: 04/21/19 Discharge Plan Patient Name: SAMEERA JOAQUIN Facility: [facility]:[place] : 1930 Planned Disposition: Shelter Facility Anticipated Discharge Date: 04/20/19 Discharge Date: 04/20/2019 Expected LOS: 2 Initial Reviewer: [email or web address] Initial Review Date: 04/18/2019 Generated: 04/21/19 11:02 am Comments DCP- Discharge Planning Updated by [email or web address]: Isabella Blevins on 04/18/19 10:[address] DC PLAN: Return to [facility] - Resident DC NEEDS: Return to [place]. CM met with patient who is extremely hard of hearting and could not hear to answer questions. CM called her brother listed on her facesheet to complete assessment. SPoke to Onur Lew, , who reported the patient is a resident at [facility]. He stated she will return there upon discharge. He reports the patient requires assistance in all areas of ADL's. She is wheelchair bound and does not ambulate. He denied further known dc needs other than returning to the [facility]. Cm will continue to follow and will assist as needed with dc plans/needs. Isabella Blevins RN, [facility] DCPIA - Discharge Planning Initial Assessment Updated by [email or web address]: Isabella Blevins on 04/18/19 11:52 am * Is the patient Alert and Oriented? Yes * How many steps to enter\exit or inside your home? None * PCP Dr. Rubin * Pharmacy [facility] * Preadmission Environment [facility] * Facility Name [facility] * ADLs Total Dependent * Equipment Wheelchair * List name and contact numbers for known caregivers / representatives who currently or will assist patient after discharge: Onur Lew - brother - [phone] [facility] * Verbal permission to speak to the caregivers and representatives has been obtained from the patient. Yes * Additional services required to return to the preadmission environment? No * Can the patient safely return to the preadmission environment? Yes * Has this patient been hospitalized within the prior 30 days at any hospital? Yes Last DP export: 04/18/19 11:01 Patient Name: SAMEERA JOAQUIN Page [id number] at 1002 All edits/amendments must be made on the electronic document DICTATION DATE: 04/21/19 1002 OFFLINE EDITOR: DM 04/21/19 1002 RPT#: [id number] DC DATE:04/20/19 STATUS: DIS IN [facility] [address] [place] [address] END OF REPORT
[2019-04-22 14:08] LABS: ACID FAST SMEAR Negative (()); AFB SPECIMEN PROCESSING Concentration (())
[2019-04-26 13:10] LABS: FUNGUS STAIN Final report (())
[2019-04-28 16:08] LABS: FUNGUS MYCOLOGY CULTURE Preliminary report (())
== END 2019-04-20 02:49 | DRG 177 ==
LOC: D.ER 03:18 → D.M3 05:42
PROVIDERS: Family Medicine; General Practice; Internal Medicine Pulmonary Disease; ADMIT Family Medicine; ATTEND Family Medicine
PROC: 0W9B3ZZ Drainage of Left Pleural Cavity, Percutaneous Approach (ICD-10-PCS; principal; 2019-04-19 17:19)
DX: J69.0 Pneumonitis due to inhalation of food and vomit (principal); J96.21 Acute and chronic respiratory failure with hypoxia; R40.2214 Coma scale, best verbal response, none, 24 hours or more after hospital admission; R40.2114 Coma scale, eyes open, never, 24 hours or more after hospital admission; R40.2314 Coma scale, best motor response, none, 24 hours or more after hospital admission; J90 Pleural effusion, not elsewhere classified; K56.7 Ileus, unspecified; I10 Essential (primary) hypertension; I69.919 Unspecified symptoms and signs involving cognitive functions following unspecified cerebrovascular disease; F01.50 Vascular dementia, unspecified severity, without behavioral disturbance, psychotic disturbance, mood disturbance, and anxiety; K21.9 Gastro-esophageal reflux disease without esophagitis; F32.9 Major depressive disorder, single episode, unspecified; I12.9 Hypertensive chronic kidney disease with stage 1 through stage 4 chronic kidney disease, or unspecified chronic kidney disease; N18.9 Chronic kidney disease, unspecified; G25.81 Restless legs syndrome